=== PATIENT | male | born 1950 | race Hispanic/Latino ===

== ENCOUNTER 2018-08-29 12:40 | Emergency (ER) | payer MEDICARE ==
[2018-08-29] MEDS ORDERED: BENADRYL IM ONE (16:47)
[2018-08-29] MEDS ORDERED: ZOFRAN ODT PO ONE (16:47)
[2018-08-29 17:22] LABS: Basophils % (Auto) 0.6 % (0.0-1.8); Eosinophils # (Auto) 0.1 K/mm3 (0.0-0.4); Eosinophils % (Auto) 1.3 % (0.0-4.3); Hematocrit 44.9 % (35.5-45.6); Hemoglobin 15.5 gm/dl (11.8-15.2); Lymphocytes # (Auto) 2.2 K/mm3 (1.2-5.4); Lymphocytes % (Auto) 32.9 % (13.4-35.0); Mean Corpuscular HGB Conc 35 % (32-34); Mean Corpuscular Volume 95 fl (84-94); Monocytes # (Auto) 0.5 K/mm3 (0.0-0.8); Monocytes % (Auto) 7.7 % (0.0-7.3); Platelet Count 251 K/mm3 (140-440); Red Blood Count 4.74 M/mm3 (3.65-5.03)
--- NOTE | 2018-08-29 17:23 | Emergency Department Report ---
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 Patient states he stepped in a half-way last night and woke up with multiple bug bites. These bites or pruritic and other people at the half-way in his area have similar symptoms. Patient states the bites made him feel nervous which in turn caused intermittent fluttering of his heart. Denies actual chest pain. He states he continues to be really stressed out and have a nervous feeling. He also states that he does not currently have a chemistry technician and his pacemaker has not been recently checked. He is compliant with his labetalol. He denies history of CAD and states that his last workup showed normal coronary arteries. He does not currently take an aspirin. - Related Data Previous Rx's Medication Instructions Recorded Last Taken Type diphenhydrAMINE [Benadryl CAP] 50 mg PO Q8HR PRN #30 capsule 08/29/18 Unknown Rx Allergies Allergy/AdvReac Type Severity Reaction Status Date / Time No Known Allergies Allergy Unverified 08/29/18 12:43 Heart Score - HEART Score History: Slightly suspicious EKG: Non-specific Age: > 65 Risk factors: 1-2 risk factors Troponin: < normal limit HEART Score: 4 ED Review of Systems ROS: Stated complaint: BUG BITES/HBP/NAUSEA Other details as noted in HPI Comment: All other systems reviewed and negative ED Past Medical Hx - Past Medical History Previous Medical History?: Yes Hx Hypertension: Yes - Surgical History Past Surgical History?: No - Social History Smoking Status: Never Smoker Substance Use Type: None - Medications Home Medications: Home Medications Medication Instructions Recorded Confirmed Last Taken Type diphenhydrAMINE [Benadryl CAP] 50 mg PO Q8HR PRN #30 capsule 08/29/18 Unknown Rx ED Physical Exam - General Limitations: No Limitations - Other Other exam information: General: No limitations, patient is alert in no acute distress Head exam: Atraumatic, normocephalic Eyes exam: Normal appearance, pupils equal reactive to light, extraocular movements intact ENT: Moist mucous membrane, normal oropharynx Neck exam: Normal inspection, full range of motion, no meningismus nontender Respiratory exam: Clear to auscultation bilateral, no wheezes, rales, crackles Cardiovascular: Normal rate and rhythm, normal heart sounds, chest wall nontender Abdomen: Soft, nondistended, and nontender, with normal bowel sounds, no rebound, or guarding Extremity: Full range of motion normal inspection no deformity, no calf te nderness or edema Back: Normal Inspection, full range of motion, no tenderness Neurologic: Alert, oriented x3, cranial nerves intact, no motor or sensory deficit Psychiatric: normal affect, normal mood Skin: Multiple pruritic blood bites noted to body. Primarily upper body ED Course Vital Signs 08/29/18 08/29/18 08/29/18 12:43 16:12 17:42 Temperature 98.0 F 98.6 F Pulse Rate 60 59 L Respiratory 16 20 Rate Blood Pressure 162/94 Blood Pressure 180/99 [Left] O2 Sat by Pulse 97 100 99 Oximetry KRISHNA score - Krishna Score Age > 65: (1) Yes Aspirin use within the Past 7 Days: (0) No 3 or more CAD Risk Factors: (0) No 2 or more Angina events in past 24 hrs: (0) No Known CAD with more than 50% Stenosis: (0) No Elevated Cardiac Markers: (0) No ST Deviation Greater than 0.5mm: (0) No KRISHNA Score: 1 ED Medical Decision Making - Lab Data Result diagrams: 08/29/18 17:05 08/29/18 17:05 Lab Results 08/29/18 08/29/18 08/29/18 Range/Units 17:05 17:05 17:05 WBC 6.7 (4.5-11.0) K/mm3 RBC 4.74 (3.65-5.03) M/mm3 Hgb 15.5 H (11.8-15.2) gm/dl Hct 44.9 (35.5-45.6) % MCV 95 H (84-94) fl MCH 33 H (28-32) pg MCHC 35 H (32-34) % RDW 14.0 (13.2-15.2) % Plt Count 251 (140-440) K/mm3 Lymph % (Auto) 32.9 (13.4-35.0) % O'Brien % (Auto) 7.7 H (0.0-7.3) % Eos % (Auto) 1.3 (0.0-4.3) % Baso % (Auto) 0.6 (0.0-1.8) % Lymph # 2.2 (1.2-5.4) K/mm3 O'Brien # 0.5 (0.0-0.8) K/mm3 Eos # 0.1 (0.0-0.4) K/mm3 Baso # 0.0 (0.0-0.1) K/mm3 Seg Neutrophils % 57.5 (40.0-70.0) % Seg Neutrophils # 3.9 (1.8-7.7) K/mm3 PT 13.3 (12.2-14.9) Sec. INR 0.95 (0.87-1.13) APTT 27.8 (24.2-36.6) Sec. Sodium 139 (137-145) mmol/L Potassium 3.7 (3.6-5.0) mmol/L Chloride 103.6 (98-107) mmol/L Carbon Dioxide 21 L (22-30) mmol/L Anion Gap 18 mmol/L BUN 16 (9-20) mg/dL Creatinine 0.7 L (0.8-1.5) mg/dL Estimated GFR > 60 ml/min BUN/Creatinine Ratio 23 % Glucose 109 H (75-100) mg/dL Calcium 8.6 (8.4-10.2) mg/dL Troponin T < 0.010 (0.00-0.029) ng/mL NT-Pro-B Natriuret Pep 199.6 (0-900) pg/mL - EKG Data -: EKG Interpreted by Me (atrial paced rhythm) EKG shows normal: axis, QRS complexes (qrsd 97), ST-T waves (no stemi/ t inv) Rate: normal (60) - EKG Data When compared to previous EKG there are: previous EKG unavailable 08/29/18 19:07 repeat ekg at 17:27 without acute changes - Radiology Data Radiology results: report reviewed PROCEDURE: XR CHEST ROUTINE 2V TECHNIQUE: PA and lateral chest radiographs were obtained. HISTORY: Chest Pain COMPARISONS: None. FINDINGS: Heart: Normal. Mediastinum/Vessels: Normal. Lungs/Pleural space: Normal. Bony thorax: No acute osseous abnormality. Noted is a left pacemaker lead wires intact IMPRESSION: Normal examination. - Medical Decision Making Patient's symptoms appeared to be more related to anxiety. Patient became a nxious after the above bites and had fluttering sensation in his chest. Cardiac enzymes are negative. Symptoms improved after IM Benadryl. Pt feeling much better after benadryl - Differential Diagnosis anxiety, bed bugs, scabies, mi, unstable angina, arrhythmia, PE Critical Care Time: No Critical care attestation.: If time is entered above; I have spent that time in minutes in the direct care of this critically ill patient, excluding procedure time. ED Disposition Clinical Impression: Bed bug bite, Palpitations, Pacemaker, HTN (hypertension) Disposition: TO HOME OR SELFCARE Is pt being admited?: No Does the pt Need Aspirin: No Condition: Stable Instructions: Insect Bite or Sting (ED), Palpitations (ED), Hypertension (ED) Additional Instructions: Take the medication as prescribed. Follow up with your doctor or the clinic/doctor provided. Return if symptoms worsen as indicated by your discharge instructions Prescriptions: diphenhydrAMINE [Benadryl CAP] 50 mg PO Q8HR PRN #30 capsule PRN Reason: Itching Referrals: [facility] [Provider Group] - 3-5 Days (Primary care clinic) MISBAH AGUILAR MD [Staff Physician] - 3-5 Days (Photographic Equipment Mechanic) Time of Disposition: 19:07
[2018-08-29 17:37] LABS: INR 0.95 (0.87-1.13); Partial Thromboplastin Time 27.8 Sec. (24.2-36.6)
[2018-08-29 17:45] LABS: BUN/Creatinine Ratio 23; Blood Urea Nitrogen 16 mg/dL (9-20); Calcium 8.6 mg/dL (8.4-10.2); Hemolysis Index 16
--- NOTE | 2018-08-29 17:59 | XRay Report ---
PROCEDURE: XR CHEST ROUTINE 2V TECHNIQUE: PA and lateral chest radiographs were obtained. HISTORY: Chest Pain COMPARISONS: None. FINDINGS: Heart: Normal. Mediastinum/Vessels: Normal. Lungs/Pleural space: Normal. Bony thorax: No acute osseous abnormality. Noted is a left pacemaker lead wires intact IMPRESSION: Normal examination. This document is electronically signed by Ashok Mendieta MD., Aug 29 2018 05:57:13 PM ET
[2018-08-29 19:22] VITALS: BP 132/85
== END 2018-08-29 19:20 | disposition home or self-care (01) ==
LOC: ED 12:40
DX: R00.2 Palpitations (principal); S20.369A Insect bite (nonvenomous) of unspecified front wall of thorax, initial encounter; I10 Essential (primary) hypertension; F41.9 Anxiety disorder, unspecified; Z95.0 Presence of cardiac pacemaker; W57.XXXA Bitten or stung by nonvenomous insect and other nonvenomous arthropods, initial encounter; Y93.89 Activity, other specified; Y92.89 Other specified places as the place of occurrence of the external cause; Y99.8 Other external cause status
CPT/HCPCS: 36415; 71046; 80048; 83880; 84484; 85025; 85610; 85730; 93005; 93010; 96372; 99284; J1200; Q0162